=== PATIENT | female | born 1995 | race Caucasian/White ===

== ENCOUNTER 2018-10-30 14:21 | Emergency (ER) | payer OTHER ==
[~2018-10-30] VITALS: Ht 149.9 cm; Wt 82.7 kg
[2018-10-30 14:44] VITALS: BP 112/67; Ht 149.9 cm; Wt 82.7 kg
== END 2018-10-30 16:33 | disposition home or self-care (01) ==
LOC: ED 14:21
DX: G56.01 Carpal tunnel syndrome, right upper limb (principal); Z98.890 Other specified postprocedural states

== ENCOUNTER 2019-01-07 10:30 | Emergency (ER) | payer OTHER ==
[~2019-01-07] VITALS: Ht 147.3 cm; Wt 84.8 kg
[2019-01-07 10:54] VITALS: BP 129/81; Ht 147.3 cm; Wt 84.8 kg
== END 2019-01-07 13:19 | disposition home or self-care (01) ==
LOC: ED 10:30
DX: B34.9 Viral infection, unspecified (principal); J98.01 Acute bronchospasm; R03.0 Elevated blood-pressure reading, without diagnosis of hypertension; Z98.890 Other specified postprocedural states
CPT/HCPCS: 87804